=== PATIENT | male | born 1960 | race American Indian/Alaskan Native ===

== ENCOUNTER 2018-07-01 11:00 | Emergency (ER) | payer MEDICAID ==
--- NOTE | 2018-07-01 11:33 | Emergency Department Report ---
Chief Complaint: Skin Rash Stated Complaint: SHINGLES,ITCHING Time Seen by Provider: 07/01/18 11:31 - HPI History of Present Illness: This is a 57 y.o. male that presents with a rash to anterior torso x 1 week. Current smoker No PMH - ROS Review of Systems: Pruitic rash anterior torso - Exam Vital Signs: Vital Signs 07/01/18 11:31 Temperature 97.8 F Pulse Rate 86 Respiratory 20 Rate Blood Pressure 117/92 O2 Sat by Pulse 97 Oximetry MSE screening note: Focused history and physical exam performed. Due to findings the following was ordered: ACC for further evaluation. ED Disposition for MSE Condition: Stable
[2018-07-01] MEDS ORDERED: DECADRON IM ONE (13:53)
--- NOTE | 2018-07-01 14:18 | Emergency Department Report ---
ED Rash HPI - HPI Chief Complaint: Skin Rash Stated Complaint: SHINGLES,ITCHING Time Seen by Provider: 07/01/18 11:31 Duration: 5 Days Location: Abdomen Suspected Cause: Other (deodorant) Rash Symptoms: Yes Itching, No Facial Swelling, No Tongue/Oral Swelling, No Breathing Difficulties, No Choking Sensation, No Wheezing/Dyspnea, No Peeling, No Blistering, No Fever, No Lightheaded, No Malaise, No Myalgias Severity: mild Other History: This is a 57-year-old male with no prior medical history who presents to ED complaining of red, generalized rash over his abdomen that began 5 days ago. Patient states he recalls is degree deodorant and got it on his hand accidentally test his abdomen. Patient states next day he noticed a red rash on his abdomen. He states rash is localized to the abdomen region. ED Review of Systems ROS: Stated complaint: SHINGLES,ITCHING Other details as noted in HPI Comment: All other systems reviewed and negative ED Past Medical Hx - Past Medical History Hx Hypertension: Yes Hx COPD: Yes - Surgical History Additional Surgical History: hernia repair. - Social History Smoking Status: Current Every Day Smoker Substance Use Type: Alcohol - Medications Home Medications: Home Medications Medication Instructions Recorded Confirmed Last Taken Type Prednisone [predniSONE 10 mg 10 mg PO .TAPER #1 tab.ds.pk 07/01/18 Unknown Rx (6-Day Pack, 21 Tabs)] Triamcinolone 0.1% [Kenalog 0.1% 1 applic TP TID #2 tube 07/01/18 Unknown Rx CREAM] hydrOXYzine HCL [Atarax] 25 mg PO Q6HR PRN #20 tablet 07/01/18 Unknown Rx Rash Exam - Exam General: Vital signs noted. No distress. Alert and acting appropriately. HEENT: No Periorbital Edema, No Conjuctival Injection, No Chemosis, No Perioral Edema, No Tongue Edema, No Uvular Edema, No Compromised Airway, No Drooling Lungs: Yes Good Air Exchange (Normal Breath Sounds), No Wheezes, No Ronchi, No Stridor, No Cough, No Labored Respirations, No Retractions, No Use of Accessory Muscles, No Other Abnormal Lung Sounds Heart: Yes Regular, No Murmur Skin: Yes Urticarial Rash (anterior abdomen /trunk), Yes Maculopapular Rash, Yes Erythema, No Morbilliform rash, No Bulla(e), No Excoriations, No Weeping, No Tenderness, No Edema, No Encrustations Other: Positive: Abdomen Normal, Neurologic Normal, Musculoskeletal Normal ED Course Vital Signs 07/01/18 11:31 Temperature 97.8 F Pulse Rate 86 Respiratory 20 Rate Blood Pressure 117/92 O2 Sat by Pulse 97 Oximetry ED Medical Decision Making - Medical Decision Making 57-year-old male presents with allergic dermatitis Patient given Decadron in the ED Vital signs are normal patient is in no acute distress Discussed the patient follow up with primary care physician within 5 days. Critical care attestation.: If time is entered above; I have spent that time in minutes in the direct care of this critically ill patient, excluding procedure time. ED Disposition Clinical Impression: Rash and nonspecific skin eruption, Allergic dermatitis, Urticaria Disposition: TO HOME OR SELFCARE Is pt being admited?: No Does the pt Need Aspirin: No Condition: Stable Instructions: Contact Dermatitis (ED), Urticaria (ED) Additional Instructions: Make sure to follow up with the primary care physician as discussed. Take all your medications as you've been prescribed. If you have any worsening symptoms or develop new symptoms please return to ED immediately. Prescriptions: hydrOXYzine HCL [Atarax] 25 mg PO Q6HR PRN #20 tablet PRN Reason: Itching Triamcinolone 0.1% [Kenalog 0.1% CREAM] 1 applic TP TID #2 tube Prednisone [predniSONE 10 mg (6-Day Pack, 21 Tabs)] 10 mg PO .TAPER #1 tab.ds.pk Referrals: [facility] MD CONNOR [Primary Care Provider] - 3-5 Days Forms: Work/School Release Form(ED) Time of Disposition: 14:23
[2018-07-01 14:49] VITALS: BP 110/70
== END 2018-07-01 14:47 | disposition home or self-care (01) ==
LOC: ED 11:00
DX: L23.9 Allergic contact dermatitis, unspecified cause (principal); I10 Essential (primary) hypertension; J44.9 Chronic obstructive pulmonary disease, unspecified; F17.200 Nicotine dependence, unspecified, uncomplicated
CPT/HCPCS: 96372; 99282; J1100